=== PATIENT | male | born 1975 | race Caucasian/White ===

== ENCOUNTER 2023-03-18 13:38 | Emergency (ER) | payer BC ==
[2023-03-18 14:05] VITALS: BP 129/87; PULSE 62; RESP 18; TEMP 98.2; BMI 24.3
== END 2023-03-18 15:07 | disposition home or self-care (01) ==
LOC: FER 13:38
DX: H93.8X3 Other specified disorders of ear, bilateral (principal)
CPT/HCPCS: 99282-25